=== PATIENT | male | born 1965 | race Two or more races ===

== ENCOUNTER 2024-04-04 18:18 | Emergency (ER) | payer BC ==
[~2024-04-04] VITALS: Ht 175.3 cm; Wt 81.8 kg
[2024-04-04 18:19] VITALS: TEMP 98
[2024-04-04] MEDS ORDERED: CEPH-558 PO (19:07)
[2024-04-04] MEDS ORDERED: IBUP-1492 PO (19:07)
[2024-04-04] MEDS: CEPHALEXIN MONOHYDRATE 500 MG CAPSULE PO ONE (19:11)
[2024-04-04] MEDS: PERTUSS(ACELL),DIPH,TET/PF 0.5 ML SYRINGE [ADULT] IM. ONE (19:11)
[2024-04-04] MEDS: IBUPROFEN 600 MG TABLET PO ONE (19:11)
[2024-04-04] MEDS: LIDOCAINE 1% 10 ML VIAL ID ONE (19:12)
[2024-04-04 19:40] VITALS: BP 145/78; PULSE 69; RESP 17; O2SAT 98
[2024-04-04] MEDS: BACITRACIN 0.9 GM PACKET OINTMENT TP ONE (19:53)
== END 2024-04-04 21:41 | disposition home or self-care (01) ==
LOC: EMS 18:18
DX: S51.811A Laceration without foreign body of right forearm, initial encounter (principal); I10 Essential (primary) hypertension; Z91.52 Personal history of nonsuicidal self-harm
CPT/HCPCS: 99283; 90715; 90471; 12002; J3490; 99284